=== PATIENT | male | born 1950 | race Caucasian/White ===

== ENCOUNTER 2016-09-22 12:55 | Inpatient (IN) | payer MEDICARE, OTHER ==
[2016-09-22] VITALS (8 sets, daily range): BP systolic 122–149; BP diastolic 49–89; PULSE 59–72; RESP 14–20; O2SAT 94–97
[~2016-09-22] VITALS: Ht 175.3 cm; Wt 112.7 kg
[2016-09-22 13:26] LABS: BASOPHILS % (AUTO) 0.7 % (0-3); MONOCYTES % (AUTO) 9.3 % (4-12); Mean Corpuscular Hemoglobin 31.8 pg (27.0-35.0); Mean Corpuscular Volume 91.6 fL (81-100); NEUTROPHILS % (AUTO) 60.1 % (40-74); Platelet Count 255 bil/L (150-400)
--- NOTE | 2016-09-22 13:26 | ED.REPORT ---
HPI-Chest Pain 40 and Over Date of Service Sep 22, 2016 ED Provider: Nursing Notes Stated Complaint: CHEST PAIN Chief Complaint: Chest Pain Nursing Notes Reviewed: Yes Allergies: Coded Allergies: No Known Allergies (Unverified , 09/22/16) General Time Seen by MD: 13:26 Chief Complaint Chest pain Physical Exam Initial Vital Signs Vital Signs (First) Date Time Temp Pulse Resp B/P Pulse Ox O2 Delivery O2 Flow Rate FiO2 09/22/16 12:58 36.1 68 18 141/89 96 09/22/16 13:17 Room Air Interpretation & Diagnostics Lab Results Interpretation Result Diagram: 09/22/16 1320 Test 09/22/16 13:20 White Blood Count 9.8th/mm3 (3.8-10.1) Red Blood Count 4.91mil/mm3 (4.40-5.80) Hemoglobin 15.6g/dL (13.8-17.2) Hematocrit 45.0% (41.0-50.0) Mean Corpuscular Volume 91.6fL (81-100) Mean Corpuscular Hemoglobin 31.8pg (27.0-35.0) Mean Corpuscular Hemoglobin Concent 34.7% (32.0-37.0) Red Cell Distribution Width 12.6% (12.3-15.4) Platelet Count 255bil/L (150-400) Neutrophils (%) (Auto) 60.1% (40-74) Lymphocytes (%) (Auto) 27.6% (14-46) Monocytes (%) (Auto) 9.3% (4-12) Eosinophils (%) (Auto) 2.0% (0-5) Basophils (%) (Auto) 0.7% (0-3) Discharge & Departure Referrals: Tal Akhtar MD (PCP/Family) Blaine Patel Sep 22, 2016 13:26 Tricia Trimble MD Sep 22, 2016 13:31
--- NOTE | 2016-09-22 13:32 | ED.REPORT ---
HPI-Chest Pain 40 and Over Date of Service Sep 22, 2016 ED Provider: Tricia Trimble MD This patient is a non-smoking 66 year old male with a history of hypertension presenting to the ED complaining of intermittent epigastric burning and diffuse chest pain that last 10-15 mins. The pain started after climbing stairs today. Pt. states that his heartburns are relieved by Prevacid and carbonated drinks. He also states that he had vomiting and diarrhea earlier this weak that improved 4 days ago. He states the heartburns started 2 hours after he was able to eat in the last 3 days. Patient denies SOB, nausea, or diaphoresis. His father had a stroke at age 71. Nursing Notes Stated Complaint: CHEST PAIN Chief Complaint: Chest Pain Nursing Notes Reviewed: Yes Allergies: Coded Allergies: No Known Allergies (Unverified , 09/22/16) Scheduled Atenolol (Atenolol) 25 Mg Tablet 75 MG PO DAILY Hydrochlorothiazide (Hydrochlorothiazide) 25 Mg Tablet 25 MG PO HS Lovastatin (Lovastatin) 40 Mg Tablet 40 MG PO DAILY Omeprazole (Omeprazole) 20 Mg Capsule.dr 20 MG PO DAILY General Time Seen by MD: 13:31 Chief Complaint Other (Severe heartburn) Hx Obtained From: Patient Arrived By: Walk-in Sudden in Onset?: Yes Onset Occurred: 4 days ago Symptom Duration: Intermittent Recent Healthcare: No recent doctor visit, No recent hospitalization Similar Sx Previous: Yes Past Medical History Past Medical History Reports: GERD, Hypertension Past Surgical History None reported Smoking History Never Smoker Social History Other Social History: Good social support, Local resident Ambulatory Status Independent Review of Systems Basic Review of Systems Eyes: Vision NL, No discharge ENT: Hearing NL, No pain : No dysuria Respiratory: Denies: Shortness of breath Cardiovascular: Reports: Chest pain GI: Reports: Abdominal pain (Epigastric), Diarrhea, Nausea, Denies: Vomiting Skin: Denies Diaphoresis Complete sys rev & neg: except as marked. Physical Exam Initial Vital Signs Vital Signs (First) Date Time Temp Pulse Resp B/P Pulse Ox O2 Delivery O2 Flow Rate FiO2 09/22/16 12:58 36.1 68 18 141/89 96 09/22/16 13:17 Room Air Initial VS: Reviewed, Vital signs abnormal Head / Eyes: Atraumatic, Normocephalic, PERRL ENT: Mucous membranes moist, Conjunctiva normal, No scleral icterus Neck: Supple, Non-tender, Full range of motion Back: No CVA tenderness Extremities: Vascular intact, Neuro intact Skin: Warm, Dry, No cyanosis Neurologic: Alert, Oriented, Nonfocal Psychiatric: Mood/affect normal, Behavior normal, Normal thought content General/Constitutional: Awake, Alert, Well developed Respiratory / Chest: Atraumatic, Breath sounds NL, Breath sounds = bilat, No respiratory distress, No rales, No rhonchi Cardiovascular: Heart rate NL, Regular rhythm, Heart sounds NL Abdomen: Atraumatic, Soft, Non-tender Interpretation & Diagnostics Lab Results Interpretation Result Diagram: 09/22/16 1320 09/22/16 1320 Test 09/22/16 13:10 09/22/16 13:20 Activated Partial Thromboplast Time 26.7sec (22.8-33.0) White Blood Count 9.8th/mm3 (3.8-10.1) Red Blood Count 4.91mil/mm3 (4.40-5.80) Hemoglobin 15.6g/dL (13.8-17.2) Hematocrit 45.0% (41.0-50.0) Mean Corpuscular Volume 91.6fL (81-100) Mean Corpuscular Hemoglobin 31.8pg (27.0-35.0) Mean Corpuscular Hemoglobin Concent 34.7% (32.0-37.0) Red Cell Distribution Width 12.6% (12.3-15.4) Platelet Count 255bil/L (150-400) Neutrophils (%) (Auto) 60.1% (40-74) Lymphocytes (%) (Auto) 27.6% (14-46) Monocytes (%) (Auto) 9.3% (4-12) Eosinophils (%) (Auto) 2.0% (0-5) Basophils (%) (Auto) 0.7% (0-3) Sodium Level 141mEq/L (134-144) Potassium Level 3.3mEq/L (3.5-5.2) Chloride Level 97mEq/L (97-108) Carbon Dioxide Level 25mmol/L (18-29) Blood Urea Nitrogen 16mg/dL (8-27) Creatinine 0.80mg/dL (0.76-1.27) Estimat Glomerular Filtration Rate 102mL/min (>59) Glucose Level 152mg/dL (60-99) Calcium Level 9.4mg/dL (8.5-10.1) Total Bilirubin 0.3mg/dL (0.0-1.2) Aspartate Amino Transf (AST/SGOT) 25U/L (0-50) Alanine Aminotransferase (ALT/SGPT) 38U/L (0-44) Alkaline Phosphatase 54U/L (25-160) Total Protein 7.4g/dL (6.4-8.4) Albumin 4.2g/dL (3.4-5.0) General Lab Results Interp 1: Labs reviewed ECG Interpretation ECG Interpretation: Left axis deviation ST depressions in and leads I aVL and V1 and V2 Time: 13:22 Interpreted by: ED physician Normal ECG Interpretation: Normal rate (66), Normal sinus rhythm, Normal intervals ECG Interpretation: Improved ST changes Time: 14:54 Interpreted by: ED physician Normal ECG Interpretation: Normal rate (62), Normal sinus rhythm X-Ray Chest Interpretation Chest Xray Interpretation: IMPRESSION: Acute disease is not seen portable chest. Cause of pain is not identified Dictated by: Guy Fine M.D. on 09/22/2016 at 14:09 View: Portable, 1 view Interpretation / Wet Read by: Interpret - Radiologist Re-Eval/Medical Decision Med Decision/Clinical Course The patient presents with chest pain and has EKG changes which resolved with treatment. He qualifies his unstable angina with Dr. Hahn, who evaluated the patient. He was admitted for further treatment. Source of Hx: Old records Time of Eval: 15:04 Patient Status: Condition unchanged Re-Evaluation/Progress Note: Pt. rechecked and was told he'd be admitted. Pt. understands and agrees with plan. All questions have been addressed at this time. Consultation #1: Referral / Consult Name: Desmond Jones MD Consulted With: Cardiology Call Returned at: 15:06 [place] Supervisor: Will see patient, Agrees with eval, Agrees with plan Consultation #2: Referral / Consult Name: Rivera Oliva MD Consulted With: Hospitalist Call Returned at: 15:36 [place] Supervisor: Will see patient, Agrees with eval, Agrees with plan, Accepts admit Counseled Regarding: Diagnosis, Lab results, Need for admission Discharge & Departure Primary Impression: Unstable angina Disposition: ADMITTED TO HOSPITAL Discharge Condition All VS Reviewed: Yes Condition: Stable Referrals: Tal Akhtar MD (PCP/Family) Scribe Attestation Portions of this note were transcribed by Ara Berg and Jennifer Fernandez. I, Dr. Trimble personally performed the history, physical exam and medical decision- making; I reviewed and confirmed the accuracy of the information in the transcribed note. Signed by: Ara Berg and Jennifer Fernandez, Serafin, 09/22/2016 and 1615. copies to: Tal Akhtar MD, Jena M MD Sep 22, 2016 13:32 Maribeth Fernandez [Jennifer] Sep 22, 2016 13:43 Ara Berg Sep 22, 2016 15:30 Ara Berg Sep 22, 2016 15:30
[2016-09-22] MEDS ORDERED: Nitroglycerin 2% 1 Gm Ointment TOPICAL ONE (13:40)
[2016-09-22 14:00] LABS: TROPONIN T < 0.010 ug/L (0.0-0.011)
--- NOTE | 2016-09-22 14:11 | DRSVH ---
PROCEDURE: X-RAY CHEST ONE VIEW, PORTABLE ([id number]) INDICATIONS: cp TECHNIQUE: One view of the chest was acquired. COMPARISON: None. FINDINGS: Surgical changes and devices: bus driver/monitor leads are seen over the chest. Oxygen tubing is present . Lungs and pleura: No pleural effusions or pneumothorax. Lungs are clear. Mediastinum: Mediastinal contours appear normal. Heart size is normal. Bones and chest wall: No suspicious bony lesions. Overlying soft tissues appear unremarkable. IMPRESSION: Acute disease is not seen portable chest. Cause of pain is not identified Dictated by: Guy Fine M.D. on 09/22/2016 at 14:09 Approved by: Guy Fine M.D. on 09/22/2016 at 14:09
[2016-09-22] MEDS ORDERED: Potassium Chloride 20 mEq SR Tablet PO ONE (14:50)
[2016-09-22] MEDS ORDERED: Heparin 5,000 Unit/mL Inj IVPUSH ONE (15:10)
[2016-09-22] MEDS ORDERED: Heparin 25K Unit/500mL 0.45 NS 25,000 UNIT in IV Premix 1 EACH IV ONE (15:10)
--- NOTE | 2016-09-22 16:17 | PCM.CHPCAR ---
Consult Subjective Date of service Sep 22, 2016 Date of admit Sep 22, 2016 at 15:50 Provider Requesting Consult Requesting Provider: Tricia Trimble MD Primary Care Physician Primary Care Provider: Tal Akhtar MD Chief Complaint Chest pain History of Present Illness This is a pleasant 66-year-old male with no prior cardiac history. Risk factors for cardiovascular disease are hypertension, obesity, hyperlipidemia. Patient has history of GERD and takes Prevacid. The patient was his normal self until nears day when he experienced a stomach bug. The patient felt nauseous had emesis and diarrhea. The following day he felt better. 2 days thereafter he started to develop chest tightness across his chest after eating dinner. 2 days thereafter he started noticing exertional chest tightness radiation across his chest walking to his mailbox. This morning the patient was working in his garage and went up and down the stairs twice started to develop chest tightness again. He took some baking soda which relieved some of his discomfort but did not completely resolved. He decided to come into the emergency room for further evaluation. His EKG on arrival showed ST depressions in the lateral leads with slight ST elevation in the inferior leads but not quite consistent with ST elevation myocardial infraction. The patient was given Nitropaste and his EKG\changes resolved. Currently he is chest pain- free. His troponin has been negative and his chest x-ray has been unremarkable. I have been asked by the ER physician to do a consultation. The patient is going to be admitted to hospitalist service. Review of Systems Review of Systems CONSTITUTIONAL: Denies fevers, denies recent illnesses. EYES: Denies any vision changes. ENT: Denies any throat pain. NECK: Denies any neck pain. CARDIOVASCULAR : Positive for chest pain. Denies palpitations. RESPIRATORY: Denies shortness of breath, denies cough, denies history of asthma or any pulmonary illnesses. GASTROINTESTINAL: Positive for nausea as described above which has now resolved. Negative for emesis. Positive for abdominal pain. Negative for diarrhea. GENITOURINARY: Negative for dysuria. Negative for urinary frequency or urgency. MUSCULOSKELETAL: Negative for extremity pains or joint discomfort. NEUROLOGIC: No change in sensation or paresthesias. SKIN: No rashes. Abdominal incisions are healed without any dehiscence, fluid leaking or pain. PMH Past Medical History 1. GERD 2. Hypertension 3. Hyperlipidemia 4. Obesity Bedside Blood Glucose: 127 Current Inpatient Medications Current Medications Lorazepam 1 mg ONCE PRN IVPUSH; Start 09/23/16 at 06:00; Stop 09/24/16 at 06:01 Nitroglycerin 0.4 mg PRN PRN SL; Start 09/23/16 at 06:00 Metoprolol Tartrate 25 mg BID PO; Start 09/22/16 at 15:45 Atorvastatin Calcium 40 mg HS PO; Start 09/22/16 at 21:00 Aspirin 325 mg DAILY PO; Start 09/23/16 at 08:30 Allergies: Coded Allergies: No Known Allergies (Unverified , 09/22/16) Family History Family History Father had a CVA in his 70s. Otherwise no other significant cardiovascular family history. Social History Hx Alcohol Use: YesAlcoholic Drinks Per Day: 3-4Hx Substance Use: No Smoking Status: Never Smoker Exam Vital Signs Vital Sign - Last Date Time Temp Pulse Resp B/P Pulse Ox O2 Delivery O2 Flow Rate FiO2 09/22/16 13:17 66 14 141/69 94 Room Air 09/22/16 12:58 36.1 General: Pleasant Cooperative Mildly obese Skin: Warm & dry to touch Head: Normocephalic Eye: EOMS intact No arcus or xanthelasma Neck: Nuchal obesity:JVP assess difficult Ears, Nose & Throat: Ears no gross abnormalities Nose no gross abnormalities Chest: Clear auscultation w/o rales/wheeze Cardiac: Normal non-displaced apical impulse Normal S1 and S2 No S3 or S4 No murmurs Pulses: Pulses full/equal all extremities Abdomen: Soft, non-distended, non-tender Extremities: Warm w/o deformities,erythema noted Neurological: Alert & oriented No gross motor or sensory deficits Psychological: Affect & interaction appropriate Lab and Diagnostics Labs CBC Test 09/22/16 13:20 White Blood Count 9.8th/mm3 (3.8-10.1) Red Blood Count 4.91mil/mm3 (4.40-5.80) Hemoglobin 15.6g/dL (13.8-17.2) Hematocrit 45.0% (41.0-50.0) Mean Corpuscular Volume 91.6fL (81-100) Mean Corpuscular Hemoglobin 31.8pg (27.0-35.0) Mean Corpuscular Hemoglobin Concent 34.7% (32.0-37.0) Red Cell Distribution Width 12.6% (12.3-15.4) Platelet Count 255bil/L (150-400) Neutrophils (%) (Auto) 60.1% (40-74) Lymphocytes (%) (Auto) 27.6% (14-46) Monocytes (%) (Auto) 9.3% (4-12) Eosinophils (%) (Auto) 2.0% (0-5) Basophils (%) (Auto) 0.7% (0-3) CMP Test 09/22/16 13:20 Sodium Level 141mEq/L Potassium Level 3.3mEq/L Chloride Level 97mEq/L Carbon Dioxide Level 25mmol/L Blood Urea Nitrogen 16mg/dL Creatinine 0.80mg/dL Estimat Glomerular Filtration Rate 102mL/min Glucose Level 152mg/dL Calcium Level 9.4mg/dL Magnesium Level 2.0mg/dL Total Bilirubin 0.3mg/dL Aspartate Amino Transf (AST/SGOT) 25U/L Alanine Aminotransferase (ALT/SGPT) 38U/L Alkaline Phosphatase 54U/L Troponin T < 0.010ug/L Total Protein 7.4g/dL Albumin 4.2g/dL Result Diagram: 09/22/16 1320 09/22/16 1320 12-lead ECG Normal sinus rhythm with ST depressions along the lateral leads that resolved after Nitropaste was given. Assessment & Plan Problems: (1) Unstable angina Plan: Symptoms are concerning for possible unstable angina. Symptoms are resolved with Nitropaste. Continue with Nitropaste and initiate aspirin, Plavix , beta blockers, and statins. Patient already has been started on intravenous heparin cardiac protocol. The patient rescheduled for cardiac catheterization tomorrow afternoon. He may have a light breakfast tomorrow for 8:00 AM and keep patient nothing by mouth thereafter. The patient was explained about the risk and benefits of the heart catheterization and wishes to proceed with cardiac catheterization. Echocardiogram to assess for any significant LV wall motion abnormalities and ejection fraction. Status: Acute ICD Code: I20.0 (2) Hyperlipidemia Qualifiers: Hyperlipidemia type: Mixed hyperlipidemia Qualified Code: E78.2 - Mixed hyperlipidemia Plan: Patient will be started on atorvastatin 40 mg by mouth daily at bedtime. Status: Chronic ICD Code: E78.5 (3) Hypertension Qualifiers: Hypertension type: essential hypertension Plan: Monitor blood pressure and if warranted may start lisinopril for additional blood pressure control. Status: Acute ICD Code: I10 (4) GERD (gastroesophageal reflux disease) Plan: Patient has been taking Prevacid for many years Status: Chronic ICD Code: K21.9 Cardiology Plan: Catherization, Lipid assessment & treatment Resuscitation Status: CPR: Attempt Resuscitation Time spent 80 minutes Copies to: Tal Akhtar MD, Oscar J MD Sep 22, 2016 16:17
[2016-09-22] MEDS ORDERED: OMEP20CA11 PO (16:26)
[2016-09-22] MEDS ORDERED: HYDR25TA4 PO (16:26)
[2016-09-22] MEDS ORDERED: LOVA40TA PO (16:26)
[2016-09-22] MEDS ORDERED: ATEN25TA PO (16:26)
--- NOTE | 2016-09-22 16:31 | NUR ---
Admit: Patient arrived to [facility] via stretcher @ approx 1610. Obtained a stand up weight then patient ambulated to bed. Alert & Oriented x 3, @ bedside. VSS. Telemetry box #51 placed, SR 72, inverted T-wave per telegraph repeater technician. Patient oriented to room and call light system. Discussed plan for Cardiac Cath tomorrow afternoon. Medication Reconciliation completed. Bed in low and locked position, side rails up x 2. Denies chest pain.
[2016-09-22] MEDS ORDERED: Senna-Docusate 8.6-50 mg Tablet PO PRN (16:45)
[2016-09-22] MEDS ORDERED: Polyethylene Glycol (PEG) 17 Gm Powder PO PRN (16:45)
[2016-09-22] MEDS ORDERED: Ondansetron 2 mg/mL 2 mL Inj IVPUSH PRN (16:45)
[2016-09-22] MEDS ORDERED: Atropine 1 mg/10 mL (Code) Syringe IVPUSH PRN (16:45)
[2016-09-22] MEDS ORDERED: Heparin 5,000 Unit/mL Inj IVPUSH PRN (16:45)
[2016-09-22] MEDS ORDERED: Heparin 25K Unit/500mL 0.45 NS 25,000 UNIT in IV Premix 1 EACH IV SCH (16:45)
[2016-09-22] MEDS ORDERED: Alum-Mag Hydrox-Simeth 30 mL Suspension PO PRN (16:45)
[2016-09-22 17:52] LABS: Magnesium 2.2 mg/dL (1.6-2.6)
[2016-09-22] MEDS: 0.9% Sodium Chloride 1,000 ML IV SCH (17:52)
[2016-09-22] MEDS ORDERED: LORazepam 0.5 mg Tablet PO PRN (18:05)
[2016-09-22 18:11] LABS: TROPONIN T 0.017 ug/L (0.0-0.011)
--- NOTE | 2016-09-22 19:21 | NUR ---
Troponin: Second Troponin elevated to 0.017. notified @ 079. No new orders received.
--- NOTE | 2016-09-22 20:55 | PCM.HPMED ---
Subjective Date of Service Sep 22, 2016 Primary Provider: Admitting Physician: Rivera Oliva MD Primary Care Physician: Tal Akhtar MD Attending Physician: Rviera Oliva MD Admit Status: From the Emergency Department Chief Complaint: Chest pain History of Present Illness: This is a 66-year-old male with apparent acute coronary syndrome. 6 days ago he had a large meal and then woke up at 2 in the morning with vomiting. This resolved in the next 2 days, to the point where he was feeling better and able to work from his home office again. 4 nights ago he developed pain across his chest while lying down. This lasted for 3 hours and then recurred each night on the succeeding 2 nights. Today, for the first time, he had the same discomfort across his upper chest when he took the stairs in his house. This time he took some sodium bicarbonate and that relieved the pain but he appropriately came to the hospital afterwards. His family history is notable for CVA in his father at age 71 but no cardiac history. He does have a personal history of hypertension and hyperlipidemia. He does not have diabetes. He does not smoke cigarettes. This is the history recorded by cardiology. This is a pleasant 66-year-old male with no prior cardiac history. Risk factors for cardiovascular disease are hypertension, obesity, hyperlipidemia. Patient has history of GERD and takes Prevacid. The patient was his normal self until nears day when he experienced a stomach bug. The patient felt nauseous had emesis and diarrhea. The following day he felt better. 2 days thereafter he started to develop chest tightness across his chest after eating dinner. 2 days thereafter he started noticing exertional chest tightness radiation across his chest walking to his mailbox. This morning the patient was working in his garage and went up and down the stairs twice started to develop chest tightness again. He took some baking soda which relieved some of his discomfort but did not completely resolved. He decided to come into the emergency room for further evaluation. His EKG on arrival showed ST depressions in the lateral leads with slight ST elevation in the inferior leads but not quite consistent with ST elevation myocardial infraction. The patient was given Nitropaste and his EKG\changes resolved. Currently he is chest pain- free. His troponin has been negative and his chest x-ray has been unremarkable. I have been asked by the ER physician to do a consultation. The patient is going to be admitted to hospitalist service. Review of Systems: Positive for chest pain. Negative for nausea/vomiting/diarrhea/abdominal pain/ fevers/chills/sweats/coughing/seizures/joint pain/back pain/dysuria/bleeding/ headache/depression/hearing loss/new allergies. Allergies Coded Allergies: No Known Allergies (Unverified , 09/22/16) Home Medications Atenolol 25 mg daily Lovastatin 40 mg daily Omeprazole 20 mg daily Hydrochlorothiazide 25 mg daily PMH Hypertension Hyperlipidemia Surgical History Vasectomy Family History Stroke age 71 in his father No coronary artery or other cardiac disease in his family Social History Hx Alcohol Use: Yes Alcoholic Drinks Per Day: 3-4 Hx Substance Use: No Smoking Status: Never Smoker Additional Information Dr. 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 There is no apparent distress. Pupils are equally round and reactive to light and accommodation. Sclera are pink and anicteric. Extraocular muscles are intact. Throat looks normal. No lymph nodes are felt head, neck, supraclavicular area. JVD is less than 6 cm. No carotid bruits are heard. Heart is regular rate and rhythm without murmur. Lungs are clear to auscultation bilaterally Abdomen is obese, bowel sounds positive, nontender, no organomegaly, soft, there is a small supraumbilical mass or hernia. There is no ankle edema. Skin has no rash or jaundice. Cranial nerves II through XII tested intact. There is no tremor. Deep tendon reflexes are symmetric. Babinski's are downgoing bilaterally. Motor function is 5 out of 5 throughout. Lab and Diagnostics Labs Laboratory Tests 72 Hours Test 09/22/16 13:10 09/22/16 13:20 09/22/16 17:13 Activated Partial Thromboplast Time 26.7sec (22.8-33.0) White Blood Count 9.8th/mm3 (3.8-10.1) Red Blood Count 4.91mil/mm3 (4.40-5.80) Hemoglobin 15.6g/dL (13.8-17.2) Hematocrit 45.0% (41.0-50.0) Mean Corpuscular Volume 91.6fL (81-100) Mean Corpuscular Hemoglobin 31.8pg (27.0-35.0) Mean Corpuscular Hemoglobin Concent 34.7% (32.0-37.0) Red Cell Distribution Width 12.6% (12.3-15.4) Platelet Count 255bil/L (150-400) Neutrophils (%) (Auto) 60.1% (40-74) Lymphocytes (%) (Auto) 27.6% (14-46) Monocytes (%) (Auto) 9.3% (4-12) Eosinophils (%) (Auto) 2.0% (0-5) Basophils (%) (Auto) 0.7% (0-3) Sodium Level 141mEq/L (134-144) Potassium Level 3.3mEq/L (3.5-5.2) Chloride Level 97mEq/L (97-108) Carbon Dioxide Level 25mmol/L (18-29) Blood Urea Nitrogen 16mg/dL (8-27) Creatinine 0.80mg/dL (0.76-1.27) Estimat Glomerular Filtration Rate 102mL/min (>59) Glucose Level 152mg/dL (60-99) Calcium Level 9.4mg/dL (8.5-10.1) Magnesium Level 2.0mg/dL (1.6-2.6) 2.2mg/dL (1.6-2.6) Total Bilirubin 0.3mg/dL (0.0-1.2) Aspartate Amino Transf (AST/SGOT) 25U/L (0-50) Alanine Aminotransferase (ALT/SGPT) 38U/L (0-44) Alkaline Phosphatase 54U/L (25-160) Troponin T < 0.010ug/L (0.0-0.011) 0.017ug/L (0.0-0.011) Total Protein 7.4g/dL (6.4-8.4) Albumin 4.2g/dL (3.4-5.0) Total Creatine Kinase 70U/L (21-232) Creatine Kinase MB 2.5ng/mL (0.0-10.4) Creatine Kinase MB % 3.6% (0.0-5.0) Thyroid Stimulating Hormone (TSH) 3.830uIU/mL (0.450-4.500) Result Diagram: 09/22/16 1320 09/22/16 1320 X-Rays, CTs and MRIs X-RAY CHEST ONE VIEW, PORTABLE ([id number]) INDICATIONS: cp TECHNIQUE: One view of the chest was acquired. COMPARISON: None. FINDINGS: Surgical changes and devices: clinical research monitor leads are seen over the chest. Oxygen tubing is present. Lungs and pleura: No pleural effusions or pneumothorax. Lungs are clear. Mediastinum: Mediastinal contours appear normal. Heart size is normal. Bones and chest wall: No suspicious bony lesions. Overlying soft tissues appear unremarkable. IMPRESSION: Acute disease is not seen portable chest. Cause of pain is not identified Dictated by: Guy Fine M.D. on 09/22/2016 at 14:09 12-lead ECG Serial EKGs are reviewed. T wave depressions in the inferior leads worsen and ST depressions in the anterior leads resolved. Assessment & Plan Acute Coronary Syndrome -Dr. Jones saw him this afternoon and plans to take him to heart catheterization tomorrow midday or so. -His troponins are rising (now up to 0.017) and the EKGs are similarly mildly abnormal. -He is symptom free. -He is on IV heparin, Plavix, metoprolol, aspirin. -Watch on telemetry tonight. GERD -Continue omeprazole. Hyperlipidemia -Changing to Lipitor. Hypertension/Hypokalemia -Changing from atenolol to metoprolol. Continue hydrochlorothiazide. -Given additional Kcl PO tonight -Recheck BMP in the morning Vickey Oliva MD Resuscitation Status: CPR: Attempt Resuscitation Rivera Oliva MD Sep 22, 2016 16:40
[2016-09-22] MEDS: Sodium Chloride LOK Flush 10 mL Syringe IVFLUSH SCH (22:03)
[2016-09-23] VITALS (20 sets, daily range): BP systolic 107–131; BP diastolic 55–84; PULSE 52–76; RESP 12–18; O2SAT 95–98
[2016-09-23 00:24] LABS: Creatine Kinase 63 U/L (21-232)
[2016-09-23 00:49] LABS: TROPONIN T 0.031 ug/L (0.0-0.011)
[2016-09-23 05:23] LABS: BASOPHILS % (AUTO) 0.4 % (0-3); EOSINOPHILS % (AUTO) 2.1 % (0-5); MONOCYTES % (AUTO) 8.4 % (4-12); Mean Corpuscular Hemoglobin 32.1 pg (27.0-35.0); Mean Corpuscular Volume 92.9 fL (81-100); Platelet Count 223 bil/L (150-400)
[2016-09-23] MEDS ORDERED: 0.9% Sodium Chloride 1,000 ML IV ONE ×2 (06:00→16:45)
[2016-09-23] MEDS: 0.9% Sodium Chloride 1,000 ML IV SCH ×3 (06:05→23:41)
[2016-09-23] MEDS: Pantoprazole 20 mg ER24 Tablet PO SCH (06:06)
--- NOTE | 2016-09-23 06:10 | NUR ---
SOB: Pt denies chest pain through the night. Has been in bed sleeping most of the night. After getting up this morning, denies pain although states having a little shortness of breath, "I hadn't been out of bed for awhile". Pt is on 1L NC with CPOX in place 96%.
[2016-09-23] MEDS: Sodium Chloride LOK Flush 10 mL Syringe IVFLUSH SCH ×3 (08:29→23:40)
[2016-09-23 09:01] LABS: APPEARANCE,URINE HAZY (CLEAR,HAZY); COLOR,URINE YELLOW (YELLOW); OCCULT BLOOD,URINE NEGATIVE (NEGATIVE); PH,URINE 7.5 (5.0-8.0); UROBILINOGEN,URINE NORMAL (NORMAL)
--- NOTE | 2016-09-23 09:36 | PROG NOTE ---
[address] [address] PROGRESS NOTE PATIENT: LAKE HICKS : 1950 MR#: [id number] ADMIT: 09/22/2016 JOB ID: [id number] DATE: 09/23/2016 SUBJECTIVE: The patient is a 66-year-old male who presented with unstable angina. The patient reports that he had chest heaviness across his chest last and Friday. He has no recurrent chest discomfort since admission. He denies orthopnea, PND, palpitation, or syncope. He does not know whether he snores at night. He has dry mouth in the morning and feels sleepy during the daytime. OBJECTIVE: Temperature is 36.4. Blood pressure is 115/77. Pulse 62. Body weight is 111.5 kg. Head and face have normal configuration. Narrow oropharynx. Moist mucosa. Neck supple. No jugular venous distention or carotid bruits. Lungs are clear to auscultation. Heart: The first and second heart sound are normal. No gallop or murmur. Abdomen: Obese, nontender. Extremities: No clubbing, cyanosis, or edema. Neurologic: Grossly intact. BLOOD TESTS: Show hemoglobin 14.4, WBC 10.2, platelet 223. Sodium 139, potassium 3.6, chloride 99, bicarb 26, BUN 12, creatinine 0.7, glucose 104. TSH 3.83. Cholesterol 138, triglycerides 125, HDL 34, LDL 79. Troponin went up from 0.01, 0.017 and 0.031. EKG today shows sinus rhythm, rate 54 per minute. Inferior T-wave inversion. IMPRESSION: 1. Hre-JB-xqcszity myocardial infarction. 2. Hypertension. 3. Hyperlipidemia. 4. Obesity, with BMI of 36.3 kg/m2. 5. Possible obstructive sleep apnea. PLAN: The patient is currently being treated with aspirin, beta daniel, TERESITA inhibitor, statin, and IV heparin. He will undergo coronary angiogram and possible percutaneous coronary intervention. The risks and benefits of the procedure have been explained to the patient. He understands and agrees to proceed with the procedure. I also explained to the patient that he may have obstructive sleep apnea. This will be investigated as an outpatient. MARIANO
[2016-09-23] MEDS ORDERED: Heparin 1,000 Units/500 mL NS Premix IV ONE (10:06)
[2016-09-23] MEDS ORDERED: Heparin 5,000 Units/500 mL NS Premix IV ONE (10:06)
[2016-09-23] MEDS ORDERED: Heparin 1,000 Unit/mL 10 mL Inj ONE ×2 (10:07→10:58)
[2016-09-23] MEDS ORDERED: fentaNYL-PF 50 mCg/mL 2 mL Inj ONE (10:07)
[2016-09-23] MEDS ORDERED: Nitroglycerin 50,000 mcg/250 mL D5W Premix IV ONE (10:20)
--- NOTE | 2016-09-23 10:40 | NUR ---
Off Unit: Patient transported via bed to labor trainer @ approx 1015 accompanied by labor trainer staff. marine diesel technician notified. VSS. No apparent distress at time of discharge. Addendum: 09/23/16 at 1354 by KETTY ASKEW RN Patient continues to be off unit, unable to obtain 4hrs pain and IV check. Addendum: 09/23/16 at 1518 by KETTY ASKEW RN Patient being transferred to [facility] room 2023 from [facility] recovery. Report called to Maryjo Angelo RN at approx 1415. Friend notified. Personal belongings bagged and taken to room 2023.
[2016-09-23] MEDS ORDERED: Protamine Sulfate 10 mg/mL 5 mL Inj ONE (11:29)
--- NOTE | 2016-09-23 11:49 | PCM.PNMED ---
Subjective Date of Service Sep 23, 2016 Subjective pt denied chest pain overnight, waiting for cath today Exam Vital Signs Vital Sign - Last Date Time Temp Pulse Resp B/P Pulse Ox O2 Delivery O2 Flow Rate FiO2 09/23/16 09:48 36.9 55 18 115/74 98 Room Air 09/23/16 00:53 1.00 Intake and Output 09/22/16 09/22/16 09/23/16 Cumulative From/Thru 15:00 23:00 07:00 09/22/16 12:58 - 09/23/16 06:55 Intake Total 1939 ml 1939 ml Output Total 325 ml 325 ml Balance 1614 ml 1614 ml Intake Oral 650 ml 650 ml IV Total 1289 ml 1289 ml Output Urine Total 325 ml 325 ml # Bowel Movements 1 1 Exam NAD, comfortably laying down on the bed no JVD, MMM, no LAD RRR, nl s1, s2 no mrg CTAB, no w,c S,ND,NT,normoactive BS+ warm, no edema, pulses 2/2 IVs and Medications Medications Reviewed: Medications were reviewed in detail Lab and Diagnostics Result Diagram: 09/23/1615 09/23/16 0515 X-Rays, CTs and MRIs X-RAY CHEST ONE VIEW, PORTABLE ([id number]) INDICATIONS: cp TECHNIQUE: One view of the chest was acquired. COMPARISON: None. FINDINGS: Surgical changes and devices: monitoring coordinator leads are seen over the chest. Oxygen tubing is present. Lungs and pleura: No pleural effusions or pneumothorax. Lungs are clear. Mediastinum: Mediastinal contours appear normal. Heart size is normal. Bones and chest wall: No suspicious bony lesions. Overlying soft tissues appear unremarkable. IMPRESSION: Acute disease is not seen portable chest. Cause of pain is not identified Dictated by: Guy Fine M.D. on 09/22/2016 at 14:09 12-lead ECG Serial EKGs are reviewed. T wave depressions in the inferior leads worsen and ST depressions in the anterior leads resolved. Assessment & Plan acute, active Acute Coronary Syndrome, POA, trops trending up, EKGs no ischemic chg, pt remains sx free, -appreciate cardiology input, [facility] today afternoon -continue IV heparin, Plavix, metoprolol, aspirin. chronic, stable GERD -Continue omeprazole. Hyperlipidemia -Changing to Lipitor. Hypertension/Hypokalemia, -Changing from atenolol to metoprolol. Continue hydrochlorothiazide. dispo: after late cath, likely home tomorrow Full code diet: cardiac healthy dvt ppx: Systemic AC Resuscitation Status: CPR: Attempt Resuscitation Time spent 35 minutes Latricia Alva MD Sep 23, 2016 11:49
--- NOTE | 2016-09-23 12:20 | NUR ---
Received Received from sugar laboratory assistant at 1145. VSS. Right groin without bleeding or hematoma. Groin precautions reviewed and verbalizes understanding. IVF infusing per order. Continued to monitor per orders.
--- NOTE | 2016-09-23 14:41 | NUR ---
Social Work-attempted initial assessment: Data:EMR Reviewed. Pt is a 66 y/o male who was admitted on 09/22/16 for unstable angina per H&P. Pt's insurance is [employer] and PCP is Tal Akhtar MD. EMR Reviewed. Pt's readmission score is 1. SW attempted to see pt, but RN informed SW that pt is currently at the [facility]. SW to follow up with pt tomorrow and complete assessment when appropriate. SW will continue to follow. Assessment:Pt who is independent at baseline. Plan:Pt to discharge home when medically stable. SW to follow up with pt tomorrow and complete assessment. SW will continue to follow. MICHAEL Tariq
--- NOTE | 2016-09-23 16:11 | NUR ---
Transfer to PCC Pt came up to PCC from [facility] who arrived there from [facility]. Right groin site is soft and non tender, no bruising or signs of bleeding. NS running at 100 till 9:45pm. No complaints of pain. A&Ox3, vitals stable, tele placed and SR 61. PT up and walking in room with no complaints and steady gait, voided in the bathroom
[2016-09-23] MEDS ORDERED: Ondansetron 2 mg/mL 2 mL Inj IVPUSH PRN (16:25)
--- NOTE | 2016-09-23 16:27 | NUR ---
Transfer Report to Lori RN about 1515. VS and groin remain stable. Taking po well. Transported to 2028 at 1600 in no distress via bed by staff. [facility]PC nurse to call floor report and transfer belongings.
--- NOTE | 2016-09-23 16:29 | DI95 ---
[address] [address] INTERVENTIONAL CARDIAC CATHETERIZATION PATIENT: LAKE HICKS : 1950 MR#: [id number] ADMIT: 09/22/2016 JOB ID: [id number] PATIENT PROFILE: The patient is a 66-year-old male who presented with aod-KG-qipxzail myocardial infarction. PROCEDURE: 1. Retrograde left heart catheterization. 2. Selective coronary angiography. 3. Balloon angioplasty and stenting to the critical mid right coronary artery stenosis. 4. Left ventricular angiogram. 5. Vascular closure device, Angioseal. COMPLICATION: None. METHOD: Retrograde left heart catheterization was performed from the right groin under 1% lidocaine local anesthesia using a 6-Zambian sheath. Selective coronary angiogram was performed in multiple projections, including cranial and caudal angulations with hand injected contrast via JL4 and 3DRC catheters. Heparin 11,000 units and prasugrel 60 mg were given. A 6-Zambian JR4 guide was advanced to the right coronary ostium. A Runthrough wire was placed inside the right coronary artery. The lesion was pre-dilated with a 2.5 x 15 mm balloon. A Resolute Integrity 3.0 x 15 mm stent was placed inside the lesion and deployed at 16 atmospheres for 30 seconds. Final angiogram was obtained. A 6-Zambian angulated pigtail catheter was advanced to the left ventricle and left ventricular angiogram was performed in the 30- degree CLARK view by injecting contrast at the rate of 10 cc/second for 3 seconds. This catheter was withdrawn. Right femoral angiogram was performed. Following sheath removal, hemostasis was achieved by using a Perclose device. The patient tolerated procedure well. He was transferred to [facility] in good condition. TOTAL CONTRAST USED: 110 cc. FLUOROSCOPY TIME: 5.2 minutes. RESULTS: 1. Selective coronary angiogram: a. Left main coronary artery is normal. b. The left anterior descending artery is transapical and has eccentric 60% stenosis in the proximal portion. c. The circumflex artery is small and has focal 60% stenosis in the mid portion. The first obtuse marginal branch is moderate size and has minor irregularity of 20% stenosis. d. The dominant right coronary artery has critical 98% stenosis in the mid portion. The distal right coronary artery has minor irregularity. 2. Balloon angioplasty and stenting was performed to the critical culprit mid right coronary artery lesion by deploying one drug eluting stent (3.0 x 15 mm) to achieve an excellent angiographic result with ERLIN-3 flow distally. 3. Left ventricular angiogram demonstrates normal left ventricular systolic function (visually estimated ejection fraction 60%). There is no wall motion abnormality. There is no mitral regurgitation. 4. There is no gradient across the aortic valve on catheter withdrawal. 5. Aortic pressure is 163/77 mmHg. Left ventricular pressure is 166/6 mmHg. 6. Left ventricular end-diastolic is 30 mmHg. CONCLUSION: 1. Critical 98% mid right coronary artery stenosis. This was successfully treated with one drug eluting stent (3.0 x 15 mm). 2. Moderate disease of the left anterior descending and circumflex artery. 3. Left ventricular ejection fraction 60%. 4. LVEDP is 30 mmHg. MTDD
[2016-09-23] MEDS ORDERED: Sodium Chloride LOK Flush 10 mL Syringe IVFLUSH PRN (16:45)
[2016-09-23] MEDS ORDERED: Atropine 1 mg/10 mL (Code) Syringe IVPUSH PRN (16:45)
[2016-09-23] MEDS ORDERED: 0.9% Sodium Chloride 250 ML BOLUS IV PRN (16:45)
[2016-09-24 03:38] VITALS: BP 124/78; PULSE 58; RESP 16; O2SAT 96
[2016-09-24 06:15] LABS: BASOPHILS % (AUTO) 0.3 % (0-3); MONOCYTES % (AUTO) 8.9 % (4-12); Mean Corpuscular Hemoglobin 31.4 pg (27.0-35.0); Mean Corpuscular Volume 94.9 fL (81-100); NEUTROPHILS % (AUTO) 58.5 % (40-74); Platelet Count 196 bil/L (150-400)
--- NOTE | 2016-09-24 06:22 | NUR ---
Cardiac Tele SBrady low to mid 50s most of night, pt denied chest pain or any other pain. Groin site asymptomatic, soft/some tenderness when palpated, no oozing noted, pedal pulse weak but palpable.
[2016-09-24 07:01] LABS: Magnesium 2.1 mg/dL (1.6-2.6); Phosphorus 3.8 mg/dL (2.5-4.9)
[2016-09-24 07:37] VITALS: BP 132/79; PULSE 57; RESP 16; O2SAT 95
[2016-09-24] MEDS: Pantoprazole 20 mg ER24 Tablet PO SCH (07:55)
[2016-09-24] MEDS: Sodium Chloride LOK Flush 10 mL Syringe IVFLUSH SCH (07:56)
[2016-09-24 08:00] VITALS: PULSE 60
--- NOTE | 2016-09-24 10:07 | DRSVH ---
[facility] [address] [place] [address] Echocardiogram Report Name: LAKE HICKS DStudy Audie e: 09/24/2016 Height: 69 in Hospital Exam Location: [facility] Weight: 248 lb Gender: Male BSA: 2.3 m2 : 1950 Age: 66 yrs BP: 124/78 mm Hg Reason For Study: UNSTABLE ANGINA, S/P HRT CATH Ordering Physician: Desmond Jones Performed By: Lalita Hernandez Referring Physician: Dr. Tal Akhtar Interpretation Summary The left ventricle is normal in size. Left ventricular systolic function is normal. The ejection fraction is estimated to be 60-65%. There are no obvious focal wall motion abnormalities noted but poor endocardial definition reduces the sensitivity for the detection of such. The right ventricle is borderline dilated. The right ventricular systolic function is normal. Pulmonary artery pressures cannot be estimated because of the lack of a measurable TR jet velocity. Both atria are mildly dilated. There is no significant valvular heart disease. The ascending aorta is mild-moderately enlarged. Procedure: A two-dimensional transthoracic echocardiogram with color flow and Doppler was performed. The apical views were difficult to obtain and are suboptimal in quality. The subcostal views were difficult to obtain and are suboptimal in quality. A contrast injection of Definity was performed to improve assessment of LV function. Contrast was injected into an intravenous site in the left arm. A total of 7 cc of contrast was given. The patient was in normal sinus rhythm during the exam. The patient did well with the Definity Contrast. Left Ventricle: The left ventricle is normal in size. Left ventricular wall thickness is at the upper limits of normal. Left ventricular systolic function is normal. The ejection fraction is estimated to be 60-65%. There are no obvious focal wall motion abnormalities noted but poor endocardial definition reduces the sensitivity for the detection of such. Assessment of diastolic parameters indicates normal left ventricular diastolic function and normal filling pressures. Right Ventricle: The right ventricle is borderline dilated. The right ventricular systolic function is normal. Atria: Both atria are mildly dilated. There is no Doppler evidence for an atrial septal defect. Mitral Valve: The mitral valve is normal. There is no mitral regurgitation noted. Aortic Valve: The aortic valve is trileaflet. The aortic valve opens well. There is trace aortic regurgitation. Tricuspid Valve: The tricuspid valve leaflets are thin and pliable. There is a trace or physiologic amount of tricuspid regurgitation. Pulmonary artery pressures cannot be estimated because of the lack of a measurable TR jet velocity. Pulmonic Valve: The pulmonic valve leaflets are thin and pliable; valve motion is normal. There is a trace or physiologic amount of pulmonic regurgitation. There is no significant valvular heart disease. Great Vessels: The aortic root is normal size. The ascending aorta is mild- moderately enlarged. The pulmonary artery is normal size. The IVC was not well visualized secondary to technical limitations making central venous pressures difficult to estimate. Pericardium/ Pleura There is no pericardial effusion. There is no pleural effusion. MMode/2D Measurements & Calculations LVIDd: 5.1 cm LA dimension: 5.0 cm RA long axis LVOT diam: 2.4 cm LVIDs: 3.1 cm AoV Openin.3 cm FS: 39.0 % LA A2 area: 20.8 cm RA area Ao root diam: 3.6 cm EPSS: 0.34 cm LA A4 area: 26.9 cm Aortic Jxn: 2.9 cm IVSd: 1.1 cm LA length (vol) : 21.6 cm asc Aorta Diam LVPWd: 1.1 cm RA vol LA vol: 80.7 ml : 68.2 ml Ao Arch Diam LA vol index RA (Proximal trans.) : 30.1 mm/ : 35.6 ml/m2 RVDd major : 6.7 cm LV block. diameter/BSALV sys. diameter/BSA RVD1 (basal) (cm/m^2): 2.3 (cm/m^2): 1.4 Doppler Measurements & Calculations Ao V2 max MV E max kris MV E/A: 1.4 PA V2 max : 152.5 cm/sec : 109.9 cm/sec Med Peak E' Kris : 84.1 cm/sec Ao max PG MV A max kris PA mean P.5 mmHg : 9.3 mmHg : 79.7 cm/sec E/E' med: 13.8 Ao mean PG MV P1/2t: 54.4 msec Lat Peak E' Kris LVOT Max Kris E/E' lat: 8.9 : 104.3 cm/sec Pulm A Revs Dur KEVIN(I,D): 3.4 cm sev ratio MV A dur : 0.11 sec MV dec time MV P1/2t max kris Ao V2 mean LV V1 max PG : 0.19 sec : 93.3 cm/sec Ao V2 VTI LV V1 VTI: 23.7 cm MVA(P1/2t): 4.0 cm2 KEVIN(V,D): 3.1 cm2 PA V2 mean KEVIN indexed to BSA E/e' average Pulm A Revs Dur - MV : 57.3 cm/sec (cm^2/m^2): 1.5 A Dur: 0.00 msec Reading Physician:ANTIONETTE
--- NOTE | 2016-09-24 12:15 | PCM.DIMED ---
Discharge Instructions Date of Service Sep 24, 2016 Dates of Hospitalization Sep 22, 2016 at 15:50 Discharge Diagnosis Discharge Diagnosis 1. STEMI, with a RCA stent placed 2. Hypertension 3. Hyperlipidemia Diet Low fat, Low Sodium Activity Limited until seen by PCP Patient Instructions Will refer you to cardiac rehab Follow-up Provider: Desmond Jones MD Follow-up with PCP in: 4 weeks Allen Valverde MD Sep 24, 2016 12:15
[2016-09-24] MEDS ORDERED: CLOP75TA28 PO (12:17)
[2016-09-24] MEDS ORDERED: METO25TA6 PO (12:17)
[2016-09-24] MEDS ORDERED: Aspirin-Expunged Drug, Do Not Renew! PO (12:17)
[2016-09-24] MEDS ORDERED: LISI-610 PO (12:17)
[2016-09-24 12:30] VITALS: BP 151/88; PULSE 59; RESP 16; O2SAT 96
--- NOTE | 2016-09-24 12:39 | NUR ---
Social Work Note: Initial Assessment/Discharge Data& Assessment: EMR reviewed. Per pt is medically ready to discharge home via POV. SW met with pt at bedside to confirm discharge plan and assess for any unmet needs, SW role explained. Erick Mariscal is a 66 year old male admitted on 09/22/2016 for unstable angina. Pt has Medicare and for life supplement insurance. [facility] [place] [facility] and is independent at baseline. Pt does not use any DME. Pt denies any SNF or HH hx. 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 Pt has DPOA paperwork completed, SW requested a copy when possible for his chart. Pt explained his friend who transported him here is sick and he will need to transport by private pay taxi. SW arranged private pay taxi through [employer] for pt to meet in he main lobby at 2:00p.m. Pt and RN updated. Pt denies any other needs. No other discharge needs identified. Plan: Per pt is medically improved and ready to discharge home via private pay taxi at 2:00p.m. All udpated and agreeable to plan. Pt denies any other needs. No other discharge needs identified. MICHAEL Garcia Addendum: 09/24/16 at 1248 by TOO SHAH Amended: Links added.
--- NOTE | 2016-09-24 13:52 | NUR ---
Discharge Pt discharged home today at 1350. Pt ambulated off floor with all of his belongings in the company of the [email or web address] to a taxi. Pt was sent with prescriptions, education materials, and follow up instructions for PCP, cardiac rehab and cardiology clinic. All questions answered and pt voiced understanding.
--- NOTE | 2016-09-25 14:55 | PCM.DC.MED ---
Discharge Summary Date of Service Sep 24, 2016 Dates of Hospitalization Date of Hospital Admission Sep 22, 2016 at 15:50 Date of Discharge: Sep 24, 2016 Providers: Admitting Physician: Rivera Oliva MD Primary Care Physician: Tal Akhtar MD Attending Physician: Rivera Oliva MD Diagnosis at Time of Discharge Diagnosis at Time of Discharge 1. [id number]-[id number] myocardial infarction. Status post PCI with RCA stenting. 2. Hypertension. 3. Hyperlipidemia. 4. Obesity, with BMI of 36.3 kg/m2. 5. Possible obstructive sleep apnea. Consultations Dr. Burnett, cardiology Procedures XRay, CTs & MRIs X-RAY CHEST ONE VIEW, PORTABLE ([id number]) INDICATIONS: cp TECHNIQUE: One view of the chest was acquired. COMPARISON: None. FINDINGS: Surgical changes and devices: awake overnight monitor leads are seen over the chest. Oxygen tubing is present. Lungs and pleura: No pleural effusions or pneumothorax. Lungs are clear. Mediastinum: Mediastinal contours appear normal. Heart size is normal. Bones and chest wall: No suspicious bony lesions. Overlying soft tissues appear unremarkable. IMPRESSION: Acute disease is not seen portable chest. Cause of pain is not identified Dictated by: Guy Fine M.D. on 09/22/2016 at 14:09 ECG 12 Lead Serial EKGs are reviewed. T wave depressions in the inferior leads worsen and ST depressions in the anterior leads resolved. Cardiac Echo Impression Normal ventricular size and function. No wall abnormalities. Borderline right atrial dilation, with difficulty measuring pressures. Invasive Procedures Patient underwent PCI with stenting of his RCA artery. This is further details in interventional note. Brief History This is a 66-year-old male with apparent acute coronary syndrome. 6 days ago he had a large meal and then woke up at 2 in the morning with vomiting. This resolved in the next 2 days, to the point where he was feeling better and able to work from his home office again. 4 nights ago he developed pain across his chest while lying down. This lasted for 3 hours and then recurred each night on the succeeding 2 nights. Today, for the first time, he had the same discomfort across his upper chest when he took the stairs in his house. This time he took some sodium bicarbonate and that relieved the pain but he appropriately came to the hospital afterwards. His family history is notable for CVA in his father at age 71 but no cardiac history. He does have a personal history of hypertension and hyperlipidemia. He does not have diabetes. He does not smoke cigarettes. This is the history recorded by cardiology. This is a pleasant 66-year-old male with no prior cardiac history. Risk factors for cardiovascular disease are hypertension, obesity, hyperlipidemia. Patient has history of GERD and takes Prevacid. The patient was his normal self until nears day when he experienced a stomach bug. The patient felt nauseous had emesis and diarrhea. The following day he felt better. 2 days thereafter he started to develop chest tightness across his chest after eating dinner. 2 days thereafter he started noticing exertional chest tightness radiation across his chest walking to his mailbox. This morning the patient was working in his garage and went up and down the stairs twice started to develop chest tightness again. He took some baking soda which relieved some of his discomfort but did not completely resolved. He decided to come into the emergency room for further evaluation. His EKG on arrival showed ST depressions in the lateral leads with slight ST elevation in the inferior leads but not quite consistent with ST elevation myocardial infraction. The patient was given Nitropaste and his EKG\changes resolved. Currently he is chest pain- free. His troponin has been negative and his chest x-ray has been unremarkable. I have been asked by the ER physician to do a consultation. The patient is going to be admitted to hospitalist service. Hospital Course acute, active Acute Coronary Syndrome, POA, trops trending up, EKGs no ischemic chg, pt remains sx free, -appreciate cardiology input, [facility] today afternoon -continue IV heparin, Plavix, metoprolol, aspirin. chronic, stable GERD -Continue omeprazole. Hyperlipidemia -Changing to Lipitor. Hypertension/Hypokalemia, -Changing from atenolol to metoprolol. dispo: after late cath, likely home tomorrow Full code diet: cardiac healthy dvt ppx: Systemic AC Aspirin course. This patient presented with evidence of acute coronary syndrome and STEMI. He was taken to the coronary catheterization lab where he underwent PCI RCA critical stenosis. Postprocedure he did well. The patient has a history of GERD, hyperlipidemia and hypertension. He had been on atenolol. Postprocedure he had no further chest pain. Echo revealed concentric ventricular function. He was on chronic atenolol which was switched to metoprolol for discharge. The discharge is felt to be stable for discharge by medicine and cardiology and the patient was agreeable to go home as well. Exam Vital Signs (Last) Date Time Temp Pulse Resp B/P Pulse Ox O2 Delivery O2 Flow Rate FiO2 09/24/16 12:30 36.4 59 16 151/88 96 Room Air 09/23/16 00:53 1.00 Exam Alert oriented no acute distress. Neck supple. Lungs are clear, normal effort. Heart is regular without murmur gallop or rub. Femoral soft nondistended. Extremities are free of edema. Groin is unremarkable no evidence of hematoma. Test 09/22/16 17:13 09/22/16 21:51 09/23/16 05:08 09/23/16 05:15 Thyroid Stimulating Hormone (TSH) 3.830uIU/mL (0.450-4.500) Total Creatine Kinase 63U/L (21-232) Creatine Kinase MB 2.1ng/mL (0.0-10.4) Creatine Kinase MB % % (0.0-5.0) Troponin T 0.031ug/L (0.0-0.011) Urine Color Yellow (YELLOW) Urine Appearance Hazy (CLEAR,HAZY) Urine pH 7.5 (5.0-8.0) Urine Specific [place] 1.010 (1.003-1.035) Urine Protein Negativemg/dL (NEG,TRACE) Urine Glucose (UA) Negativemg/dL (NEGATIVE) Urine Ketones Negativemg/dL (NEGATIVE) Urine Occult Blood Negative (NEGATIVE) Urine Nitrite Negative (NEGATIVE) Urine Bilirubin Negative (NEGATIVE) Urine Urobilinogen Normalmg/dL (NORMAL) Urine Leukocyte Esterase Negative (NEGATIVE) Urine RBC 0-2/hpf (0-2) Urine WBC 0-5/hpf (0-5) Urine Epithelial Cells Occasional/hpf (NONE-MOD) Urine Crystals None seen (NONE SEEN) Urine Bacteria None/hpf (NONE-FEW) Urine Hyaline Casts None/lpf (NONE) Urine Granular Casts None seen (NONE SEEN) Urine Waxy Casts None seen (NONE SEEN) Urine Red Blood Cell Casts None seen (NONE SEEN) Urine White Blood Cell Casts None seen (NONE SEEN) Urine Mucus None seen (None Seen) Urine Trichomonas None seen (NONE SEEN) Urine Yeast None (NONE SEEN) Urinalysis Comment None Urine Culture Reflexed Not indicated Hold Urine Received (Received) Triglycerides Level 125mg/dL (0-149) Cholesterol Level 138mg/dL (100-199) LDL Cholesterol, Calculated 79.000mg/dL (0-99) VLDL Cholesterol 25.000mg/dL HDL Cholesterol 34mg/dL (>39) Cholesterol/HDL Ratio 4.06 (0.0-4.4) Test 09/23/16 16:45 09/24/16 05:53 Activated Partial Thromboplast Time 28.6sec (22.8-33.0) White Blood Count 7.4th/mm3 (3.8-10.1) Red Blood Count 4.11mil/mm3 (4.40-5.80) Hemoglobin 12.9g/dL (13.8-17.2) Hematocrit 39.0% (41.0-50.0) Mean Corpuscular Volume 94.9fL (81-100) Mean Corpuscular Hemoglobin 31.4pg (27.0-35.0) Mean Corpuscular Hemoglobin Concent 33.1% (32.0-37.0) Red Cell Distribution Width 12.6% (12.3-15.4) Platelet Count 196bil/L (150-400) Neutrophils (%) (Auto) 58.5% (40-74) Lymphocytes (%) (Auto) 28.9% (14-46) Monocytes (%) (Auto) 8.9% (4-12) Eosinophils (%) (Auto) 3.0% (0-5) Basophils (%) (Auto) 0.3% (0-3) Sodium Level 140mEq/L (134-144) Potassium Level 4.0mEq/L (3.5-5.2) Chloride Level 104mEq/L (97-108) Carbon Dioxide Level 24mmol/L (18-29) Blood Urea Nitrogen 10mg/dL (8-27) Creatinine 0.75mg/dL (0.76-1.27) Estimat Glomerular Filtration Rate 110mL/min (>59) Glucose Level 98mg/dL (60-99) Calcium Level 8.8mg/dL (8.5-10.1) Phosphorus Level 3.8mg/dL (2.5-4.9) Magnesium Level 2.1mg/dL (1.6-2.6) Total Bilirubin 0.4mg/dL (0.0-1.2) Aspartate Amino Transf (AST/SGOT) 18U/L (0-50) Alanine Aminotransferase (ALT/SGPT) 28U/L (0-44) Alkaline Phosphatase 45U/L (25-160) Total Protein 5.7g/dL (6.4-8.4) Albumin 3.5g/dL (3.4-5.0) Discharge Medications Discharge Medications ([Aspirin-Expunged Drug, Do Not Renew!]) 325 MG TABLET 325 MG PO DAILY Prescribed by: ALLEN SPEARS MD Clopidogrel (Clopidogrel) 75 Mg Tablet 75 MG PO DAILY Prescribed by: ALLEN SPEARS MD Hydrochlorothiazide (Hydrochlorothiazide) 25 Mg Tablet 25 MG PO HS (Reported) Lisinopril (Zestril) 10 Mg Tablet 10 MG PO DAILY Prescribed by: ALLEN SPEARS MD Lovastatin (Lovastatin) 40 Mg Tablet 40 MG PO DAILY (Reported) Metoprolol Tartrate (Metoprolol Tartrate) 25 Mg Tablet 25 MG PO BID Prescribed by: ALLEN SPEARS MD Omeprazole (Omeprazole) 20 Mg Capsule.dr 20 MG PO DAILY (Reported) Followup Plan Disposition: Home Discharge Diet: Low fat, Low Sodium Discharge Activity: Limited until seen by PCP Patient Instructions Will refer you to cardiac rehab Follow-up Provider: Desmond Jones MD Follow-up with PCP in: 4 weeks Time spent 35 minutes Allen Spears MD Sep 25, 2016 14:55
== END 2016-09-24 14:00 | disposition home or self-care (01) | DRG 247 ==
LOC: SED 12:55 → OBSVTOIN 15:50 → MPC 15:50 → PCC 09-23 15:58
PROVIDERS: ADMIT Family Medicine; ATTEND Family Medicine
PROC: 027034Z Dilation of Coronary Artery, One Artery with Drug-eluting Intraluminal Device, Percutaneous Approach (ICD-10-PCS; principal; 2016-09-23)
PROC: B2111ZZ Fluoroscopy of Multiple Coronary Arteries using Low Osmolar Contrast (ICD-10-PCS; 2016-09-23)
PROC: B2151ZZ Fluoroscopy of Left Heart using Low Osmolar Contrast (ICD-10-PCS; 2016-09-23)
PROC: 4A023N7 Measurement of Cardiac Sampling and Pressure, Left Heart, Percutaneous Approach (ICD-10-PCS; 2016-09-23)
DX: I21.4 Non-ST elevation (NSTEMI) myocardial infarction (principal); I10 Essential (primary) hypertension; I25.10 Atherosclerotic heart disease of native coronary artery without angina pectoris; E78.5 Hyperlipidemia, unspecified; E66.9 Obesity, unspecified; K21.9 Gastro-esophageal reflux disease without esophagitis; Z68.36 Body mass index [BMI] 36.0-36.9, adult; G47.33 Obstructive sleep apnea (adult) (pediatric)